=== PATIENT | female | born 1945 | race Caucasian/White ===

== ENCOUNTER → 2021-11-07 | Outpatient (CLI) | payer OTHER ==
[~2021-11-07] MED LIST: ALBUTEROL2.5 MG/31 INH; ALLERGY PILL PO; C-500500 MG PO; CARAFATE 1 GM TA1 GM PO; CEFTIN500 MG PO; CELEBREX 200 M200 M1 PO; GAVISCON500 MG PO; GLUCOSAMINE HC500 MG PO; GUAIFENESIN600 MG PO; IMURAN 50MG TAB50 M1 PO; IRON325 PO; MAGNESIUM400 MG PO; MEDROL DOSPAK21 TAB PO; MOBIC7.5 MG PO; MULTIVITAMINS PO; NORCO 5-325 TA1 EACH PO; NYSTATIN 1100000 U/M PO; PANTOPRAZOLE SO40 M1 PO; PEPCID20 MG PO; PHENERGAN 25 MG25 M1 PO; POTASSIUM99 M1 PO; PREDNISONE 20 M20 MG; PREDNISONE 5 MG5 M1 PO; PROBIOTIC1 EAC1 PO; PROTONIX40 MG PO; SYNTHROID50 MCG PO; TUMS PO; TUSSIONEX PENN473 ML PO; VENTOLIN HFA 1818 GM IH; WELCHOL 625 MG625 M1 PO; ZOFRAN ODT4 MG PO
== END ==
LOC: HYPER 08:36
PROVIDERS: ATTEND Emergency Medicine
DX: E11.622 Type 2 diabetes mellitus with other skin ulcer (principal); L98.411 Non-pressure chronic ulcer of buttock limited to breakdown of skin; M35.00 Sjogren syndrome, unspecified; M05.80 Other rheumatoid arthritis with rheumatoid factor of unspecified site; E11.40 Type 2 diabetes mellitus with diabetic neuropathy, unspecified; G99.0 Autonomic neuropathy in diseases classified elsewhere; Z90.710 Acquired absence of both cervix and uterus; Z96.643 Presence of artificial hip joint, bilateral

== ENCOUNTER → 2021-12-05 | Outpatient (CLI) | payer OTHER | LOC: HYPER 08:58 | PROVIDERS: ATTEND Emergency Medicine | DX: E11.622 Type 2 diabetes mellitus with other skin ulcer (principal); L98.411 Non-pressure chronic ulcer of buttock limited to breakdown of skin; E11.43 Type 2 diabetes mellitus with diabetic autonomic (poly)neuropathy; M35.00 Sjogren syndrome, unspecified; M05.80 Other rheumatoid arthritis with rheumatoid factor of unspecified site; Z79.84 Long term (current) use of oral hypoglycemic drugs; Z79.899 Other long term (current) drug therapy; Z98.890 Other specified postprocedural states; Z96.643 Presence of artificial hip joint, bilateral; Z90.89 Acquired absence of other organs ==

== ENCOUNTER → 2022-01-23 | Outpatient (CLI) | payer OTHER | LOC: HYPER 09:05 | PROVIDERS: ATTEND Emergency Medicine | DX: E11.622 Type 2 diabetes mellitus with other skin ulcer (principal); L98.411 Non-pressure chronic ulcer of buttock limited to breakdown of skin; E11.43 Type 2 diabetes mellitus with diabetic autonomic (poly)neuropathy; M35.00 Sjogren syndrome, unspecified; M05.80 Other rheumatoid arthritis with rheumatoid factor of unspecified site; Z79.84 Long term (current) use of oral hypoglycemic drugs; Z96.643 Presence of artificial hip joint, bilateral; Z90.89 Acquired absence of other organs ==